=== PATIENT | female | born 1990 | race Caucasian/White ===

== ENCOUNTER 2022-10-16 11:18 | Emergency (ER) | payer BC, SELFPAY ==
[2022-10-16 11:31] VITALS: BP 134/78; PULSE 98; RESP 18; TEMP 35.7; O2SAT 99
[2022-10-16 11:35] VITALS: BP 134/78; PULSE 98; RESP 18; TEMP 35.7; O2SAT 99
--- NOTE | 2022-10-16 11:39 | ED.DENTAL ---
HPI - Dental/Oral General Chief complaint: Dental/Oral Stated complaint: right side mouth pain Time Seen by Provider: 10/16/22 11:40 Source: patient Mode of arrival: ambulatory History of Present Illness HPI Narrative: 32 y/o female presented for c/o right lower dental pain for about 3 days, woke yesterday with right sided facial swelling. Reports the swelling is improved but the pain limits her ability to open or close her mouth. Patient says about 6 months ago she underwent the wisdom tooth extraction to the current site of pain, but the tooth was unable to be extracted and she has not f/u. Taking ibuprofen for pain. MD Complaint: tooth pain Related Data Home Medications Medication Instructions Recorded Confirmed bupropion HCl 150 mg 24 hr tablet, mg PO 10/16/22 extended release buspirone 15 mg tablet mg 10/16/22 carbamazepine 200 mg tablet mg 10/16/22 norethindrone 1 mg-ethinyl tablet 10/16/22 estradiol 10 mcg (24)-iron 10 mcg(2) tablet (Lo Loestrin Fe) prazosin 2 mg capsule mg 10/16/22 quetiapine 100 mg tablet mg 10/16/22 valacyclovir 500 mg tablet mg 10/16/22 venlafaxine 75 mg capsule,extended mg PO 10/16/22 release 24 hr Allergies Allergy/AdvReac Type Severity Reaction Status Date / Time Sulfa (Sulfonamide Allergy Rash Verified 10/16/22 11:33 Antibiotics) codeine AdvReac Nausea and Verified 10/16/22 11:33 Vomiting Review of Systems Review of Systems: CONSTITUTIONAL: Denies body aches, fever, chills ENT: Denies rhinorrhea, congestion, sore throat, or otalgia. Reports dental pain CARDIOVASCULAR: Denies chest pain, palpitations RESPIRATORY: Denies cough or dyspnea. SKIN: Denies rash, itching, or wounds. MUSCULOSKELETAL: Denies myalgia. NEUROLOGIC: Denies headache, numbness, tingling, or weakness. [facility] Past Medical History Medical History (Updated 10/16/22 @ 12:00 by Gayle Bhagat APRN) Abuse, drug or alcohol Comments At time of signature, I have reviewed and agree with nursing past medical, surgical, social and family history unless otherwise noted. Please see nursing chart for further information. There is no relevant family history pertinent to the presenting complaint Exam Narrative: GENERAL: Appears in pain; no acute distress. HEAD: Normocephalic, atraumatic. EYES: EOMI. No redness or drainage. Conjunctivae normal. ENT: Dental pain location of #32, tender with mild gum and cheek swelling, no active drainage; Mucous membranes pink and moist. TMs normal bilaterally. Throat normal. Uvula midline. NECK: Normal AROM. No lymphadenopathy.no induration below mandible, no neck pain. CHEST: No respiratory distress. Clear to auscultation. HEART: Regular rate and rhythm. No murmur appreciated. SKIN: Warm, dry, no rash. Normal skin turgor. NEURO: No focal deficits. Alert and oriented x3. Gait steady. Course Course Emergency Course: Patient is aware of diagnosis, understands and agrees to treatment plan. Anticipatory guidance given. Patient agrees to follow-up as directed and is aware of reasons to seek care at the emergency department. Portions of this record may have been created with voice recognition software Level of Care: Express Care Visit Vital Signs Vital signs: Vital Signs Temperature 96.3 F L 10/16/22 11:31 Pulse Rate 98 10/16/22 11:31 Respiratory Rate 18 10/16/22 11:31 Blood Pressure 134/78 10/16/22 11:31 Pulse Oximetry 99 10/16/22 11:31 Oxygen Delivery Room Air 10/16/22 11:31 Temperature 96.3 F L 10/16/22 11:35 Pulse Rate 98 10/16/22 11:35 Respiratory Rate 18 10/16/22 11:35 Blood Pressure 134/78 10/16/22 11:35 Pulse Oximetry 99 10/16/22 11:35 Oxygen Delivery Room Air 10/16/22 11:35 MDM - Dental/Oral MDM Narrative Medical decision making narrative: Patients pain and complaint coupled with physical findings are consistent with dentalgia. There are no focal signs of space occup
== END 2022-10-16 11:53 | disposition home or self-care (01) ==
PROVIDERS: Emergency Provider Nurse Practitioner Family
DX: K08.89 Other specified disorders of teeth and supporting structures (principal)
CPT/HCPCS: 99203; G0463